=== PATIENT | female | born 1970 | race Caucasian/White ===

== ENCOUNTER 2017-01-29 18:37 | Inpatient (IN) | payer OTHER ==
[~2017-01-29] VITALS: Ht 167.6 cm; Wt 108.8 kg
[~2017-01-29 18:37] MED LIST: GABA-502 PO; METO25TA6 PO; OXYC20TA55 PO; OXYC5TAB72 PO
[2017-01-29] MEDS ORDERED: Ketamine 10 mg/mL 20 mL Inj ONE (18:58)
[2017-01-29] MEDS ORDERED: Propofol 10 mg/mL 20 mL Inj ONE (18:59)
[2017-01-29] MEDS ORDERED: CeFAZolin 2 Gm/50 mL D5W Duplex Bag IV ONE (19:07)
[2017-01-29] MEDS ORDERED: Ketamine 10 mg/mL 20 mL Inj IV ONE (19:10)
[2017-01-29] MEDS ORDERED: Propofol 10,000 mCg/mL 20 mL Inj IV ONE (19:15)
[2017-01-29] MEDS ORDERED: CeFAZolin Inj 2 GM in IV Premix 1 EACH IV ONE (19:15)
[2017-01-29] MEDS ORDERED: 0.9% Sodium Chloride 1,000 ML IV ONE (19:18)
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
[2017-01-29] MEDS ORDERED: TdaP Vaccine 0.5 mL Inj IM ONE (19:30)
[2017-01-29 19:46] LABS: BASOPHILS % (AUTO) 0.3 % (0-3); EOSINOPHILS % (AUTO) 1.3 % (0-5); MONOCYTES % (AUTO) 7.3 % (4-12); Mean Corpuscular Hemoglobin 30.5 pg (27.0-35.0); Mean Corpuscular Volume 89.8 fL (81-100); NEUTROPHILS % (AUTO) 41.8 % (40-74); Platelet Count 320 bil/L (150-400)
[2017-01-29 19:53] LABS: INR 0.88 ratio
[2017-01-29] MEDS ORDERED: Ondansetron 2 mg/mL 2 mL Inj IVPUSH ONE (20:10)
[2017-01-29 20:17] LABS: Lipase 148 U/L (13-60)
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
[2017-01-29] MEDS ORDERED: Ondansetron 2 mg/mL 2 mL Inj IVPUSH PRN (22:25)
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
[2017-01-29 22:56] VITALS: BP 101/68; PULSE 88; RESP 19; O2SAT 100
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
[2017-01-29 23:40] VITALS: BP 110/71; PULSE 84; RESP 20; O2SAT 99
[2017-01-30] VITALS (14 sets, daily range): BP systolic 92–144; BP diastolic 60–90; PULSE 70–93; RESP 12–20; O2SAT 92–100
[2017-01-30] MEDS ORDERED: GABA800T2 PO (00:13)
[2017-01-30] MEDS: 0.9% Sodium Chloride 1,000 ML IV SCH ×3 (00:23→13:38)
--- NOTE | 2017-01-30 00:28 | NUR ---
Admit Patient arrived from the ED at 2305. Patient A&OX3. Patient has open fraction of right ankle with a splint on it. . Vitals stable. Room air. Patient has multiple scrapes on left arm. Patient able to stand and and turn to bedside commode independently. 2 peripheral IV's, left wrist and right AC. IV currently infusing in left wrist.
[2017-01-30 00:57] LABS: APPEARANCE,URINE HAZY (CLEAR,HAZY); COLOR,URINE YELLOW (YELLOW); OCCULT BLOOD,URINE MODERATE (NEGATIVE); PH,URINE 5.5 (5.0-8.0); UROBILINOGEN,URINE NORMAL (NORMAL)
[2017-01-30] MEDS ORDERED: HYDROmorphone 1 mg/mL Inj IVPUSH PRN ×3 (02:10→11:30)
[2017-01-30] MEDS ORDERED: Ondansetron 8 mg ODT Tablet PO PRN (02:10)
[2017-01-30] MEDS ORDERED: Ondansetron 2 mg/mL 2 mL Inj IVPUSH PRN ×2 (02:10→11:30)
[2017-01-30] MEDS: HYDROmorphone PCA 0.2 mg/mL 30 mL Inj - Standard IV PRN ×2 (02:24→10:22)
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
--- NOTE | 2017-01-30 10:56 | NUR ---
To OR Via bed at 10:50. Daughter at bedside. Signed consent in chart. Report phoned to [facility], including info that pt takes home beta digna that has not been ordered yet.
[2017-01-30] MEDS: Lactated Ringer's 1,000 ML IV SCH ×2 (11:13→13:03)
[2017-01-30] MEDS ORDERED: Lactated Ringer's 500 ML IV PRN (11:28)
[2017-01-30] MEDS ORDERED: Labetalol 5 mg/mL 4 mL Inj IV PRN (11:30)
[2017-01-30] MEDS ORDERED: MetoCLOpramide 5 mg/mL 2 mL Inj IVPUSH PRN ×2 (11:30→12:20)
[2017-01-30] MEDS ORDERED: EPHEDrine Sulfate 50 mg/mL Inj IVPUSH PRN (11:30)
[2017-01-30] MEDS ORDERED: Atropine 0.4 mg/mL Inj IVPUSH PRN (11:30)
[2017-01-30] MEDS ORDERED: Phenylephrine 10,000 mCg/mL Inj IVPUSH PRN (11:30)
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
[2017-01-30] MEDS ORDERED: Bacitracin 50,000 unit Inj IRRIGATION ONE ×3 (11:45)
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
[2017-01-30] MEDS: fentaNYL-PF 50 mCg/mL 2 mL Inj IVPUSH PRN ×2 (12:38→12:48)
[2017-01-30] MEDS ORDERED: MeTOProlol 1 mg/mL 5 mL Inj ONE (12:48)
[2017-01-30] MEDS ORDERED: Propofol 10,000 mCg/mL 20 mL Inj ONE (12:48)
[2017-01-30] MEDS ORDERED: Ondansetron 2 mg/mL 2 mL Inj ONE (12:48)
[2017-01-30] MEDS ORDERED: Dexamethasone 4 mg/mL Inj ONE (12:48)
[2017-01-30] MEDS ORDERED: fentaNYL-PF 50 mCg/mL 2 mL Inj ONE (12:48)
[2017-01-30] MEDS ORDERED: Phenylephrine/NS 100 mCg/mL 10 mL Syringe IVPUSH ONE (12:48)
--- NOTE | 2017-01-30 13:41 | NUR ---
Post op Returned from PACU via bed at 13:10. Report received from Juan C. Pt sedated, does wake easily to voice. 2l O2 via nc, STATION CAPTAIN, sats 97% Will wait to reconnect AUTO TRANSPORT DRIVER until pt more alert. R leg in splint/indigo, CDI. Ice packs to ankle and knee. Family at bedside. Per report, Beta digna given in OR.
[2017-01-30] MEDS: MetoCLOpramide 5 mg/mL 2 mL Inj IVPUSH PRN (19:40)
[2017-01-30] MEDS: CeFAZolin Inj 2 GM in IV Premix 1 EACH IV SCH (20:50)
[2017-01-30] MEDS: Ketorolac 15 mg/mL Inj IVPUSH PRN (20:52)
[2017-01-31] VITALS (8 sets, daily range): BP systolic 118–144; BP diastolic 65–80; PULSE 81–101; RESP 16–20; O2SAT 97–99
[2017-01-31] MEDS: HYDROmorphone PCA 0.2 mg/mL 30 mL Inj - Standard IV PRN (04:14)
--- NOTE | 2017-01-31 04:54 | NUR ---
Pain Pain adequately controlled with FAREBOX REPAIRER Dilaudid, leg elevated. Pt able to move safely to BSC independently, understands non-weight bearing status. Moderate nausea controlled with Reglan. Migraine controlled with Toradol. Hourly rounding ongoing.
[2017-01-31 05:48] LABS: BASOPHILS % (AUTO) 0.2 % (0-3); EOSINOPHILS % (AUTO) 0.2 % (0-5); MONOCYTES % (AUTO) 9.5 % (4-12); Mean Corpuscular Volume 93.1 fL (81-100); NEUTROPHILS % (AUTO) 70.4 % (40-74); Platelet Count 216 bil/L (150-400)
[2017-01-31] MEDS: CeFAZolin Inj 2 GM in IV Premix 1 EACH IV SCH (05:54)
[2017-01-31] MEDS: 0.9% Sodium Chloride 1,000 ML IV SCH ×2 (05:54→13:16)
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
[2017-01-31] MEDS: MetoCLOpramide 5 mg/mL 2 mL Inj IVPUSH PRN (08:56)
--- NOTE | 2017-01-31 10:30 | NUR ---
Off Unit to CT at 1005; left via bed. IV infusing with CUSTOMER ENGAGEMENT REPRESENTATIVE. Chart with pt. Pt stable and aware of plan for imaging. Returned to OSC unit, 1005, at 1012.
[2017-01-31] MEDS: Polyethylene Glycol (PEG) 17 Gm Powder PO SCH (11:04)
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
[2017-01-31] MEDS ORDERED: CRUT1EAC36 MC (15:05)
--- NOTE | 2017-01-31 15:18 | NUR ---
Pain Pt CHAIN HOOKER dc'd at ~1430. Per CHAIN HOOKER machine, had not pressed CHAIN HOOKER button since 0755. Stating pain 7/10, states headache greater than ankle at this time, but tolerable pain levels. Pt switched to PO home pain medication regimen. Pt calm and cooperative with care. trying to rest post PT, tolerated PT. Care continues.
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
[2017-01-31] MEDS ORDERED: oxyCODONE ER 20 mg ER12 Tablet PO SCH (21:00)
[2017-01-31] MEDS: Ketorolac 15 mg/mL Inj IVPUSH PRN (23:02)
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
[2017-02-01] VITALS (7 sets, daily range): BP systolic 102–113; BP diastolic 66–74; PULSE 73–79; RESP 16–18; O2SAT 95–98
[2017-02-01] MEDS: 0.9% Sodium Chloride 1,000 ML IV SCH ×2 (01:46→13:59)
[2017-02-01 06:03] LABS: BASOPHILS % (AUTO) 0.2 % (0-3); EOSINOPHILS % (AUTO) 1.2 % (0-5); MONOCYTES % (AUTO) 9.8 % (4-12); Mean Corpuscular Volume 94.2 fL (81-100); NEUTROPHILS % (AUTO) 46.3 % (40-74); Platelet Count 208 bil/L (150-400)
[2017-02-01] MEDS: Ketorolac 15 mg/mL Inj IVPUSH PRN ×2 (06:34→13:32)
[2017-02-01] MEDS: Polyethylene Glycol (PEG) 17 Gm Powder PO SCH (07:54)
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
--- NOTE | 2017-02-01 12:21 | NUR ---
Neuro/Dizziness Pt continues to c/o dizziness and lightheadedness mainly with movement. Pt teaching done with taking slow movements and allowing her body to adjust. Pt c/o of headache. Pain medication given. Ice pack given. Pt c/o discomfort and chest tightness while taking deep breaths. Pupils equal and reactive. A&Ox3. TOBIAS. No neuro deficits noted. PA notified. Will continue to monitor for changes.
--- NOTE | 2017-02-01 12:29 | PCM.DISURG ---
Surgical Discharge Instruction Date of Service Feb 01, 2017 Dates of Hospitalization Date of Hospital Admission Jan 29, 2017 at 22:21 Providers Admitting Physician: Lucian Doan MD Primary Care Physician: Berhane Cope MD Attending Physician: Lucian Doan MD Discharge Diagnosis Discharge Diagnosis Right open ankle subtalar dislocation, talus fracture, calcaneus fracture, open tibial wound Post Operative diagnosis same Diet Discharge Diet: No restrictions Activity Discharge Activity-General: Elevate extremity, No driving while taking narcotic Dressing and Incisional Care Dressing Care: Keep dressing clean, dry & intact Hygiene: NO bathtub, hot tub or whirlpool, Other (may shower or bathe keeping as long as right leg remains completely dry) Additional Instructions Discharge Instructions Please keep dressing clean dry and intact. Do not remove dressing until follow- up in clinic. There is abundant padding over the wound. Dr. Downs does not recommend removing any of the dressing or splint at this time. Weight bearing: Do not weight-bear on right lower extremity. You may use crutches or a walker/scooter to help with ambulation on your unaffected extremity. You will follow up at [facility] [place] on Monday02/03/17 for suture removal and definitive care. Please keep the affected extremity elevated when possible. You may use ice and/or heat as needed for comfort (preferably ice during the first 48-72 hours). Please feel free to call with any further questions, comments, and/or concerns. We recommend discharge her on pain medications, medications for constipation, as well as aspirin 81 mg for 2 weeks. Follow Up Plan Follow Up Plan follow-up with [facility] this 02/03/2017 at 11am. Call your provider for: Fever, Chills, Increasing wound pain Aidan Griffin PA-C Feb 01, 2017 12:29
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
--- NOTE | 2017-02-01 16:42 | NUR ---
Discharge Pt awaiting ride to be d/c'd from room 1005 home with daughter. All discharge teaching and instructions done with pt. Pt verbalized understanding and denied having questions. Pt did not have any RX at this time. Pain medication being handled by the pain clinic. Pt to f/u at [place] on 02/03/17 with a check in time at 1045. Pt to ice and heat sore muscles and ice and elevate affected extremity. IV d/c'd intact and no items are in the safe or the pharmacy.
== END 2017-02-01 16:49 | disposition home or self-care (01) | DRG 317 ==
LOC: EDBD 18:37 → SED 18:37 → OBSVTOIN 22:21 → OSC 22:21
PROVIDERS: ADMIT Surgery; ATTEND Surgery
PROC: 0QSLXZZ Reposition Right Tarsal, External Approach (ICD-10-PCS; 2017-01-29)
PROC: 0JDN0ZZ Extraction of Right Lower Leg Subcutaneous Tissue and Fascia, Open Approach (ICD-10-PCS; 2017-01-30)
PROC: 0KQV0ZZ Repair Right Foot Muscle, Open Approach (ICD-10-PCS; 2017-01-30)
PROC: 0JDQ0ZZ Extraction of Right Foot Subcutaneous Tissue and Fascia, Open Approach (ICD-10-PCS; principal; 2017-01-30 11:30)
DX: S92.101B Unspecified fracture of right talus, initial encounter for open fracture (principal); S96.821A Laceration of other specified muscles and tendons at ankle and foot level, right foot, initial encounter; S92.021B Displaced fracture of anterior process of right calcaneus, initial encounter for open fracture; S81.011A Laceration without foreign body, right knee, initial encounter; V87.7XXA Person injured in collision between other specified motor vehicles (traffic), initial encounter; F17.210 Nicotine dependence, cigarettes, uncomplicated